=== PATIENT | male | born 1960 | race Caucasian/White ===

== ENCOUNTER 2019-01-15 08:59 | Day surgery (SDC) | payer OTHER ==
[~2019-01-15] VITALS: Ht 162.6 cm; Wt 83.1 kg
[2019-01-15 09:57] VITALS: Ht 162.6 cm; Wt 83.1 kg
[2019-01-15] MEDS ORDERED: AMLODIPINE DAILY (10:09)
[2019-01-15] MEDS ORDERED: [UNRECOGNIZED DRUG - OTHER] (10:09)
[2019-01-15] MEDS ORDERED: PEPCID DAILY (10:10)
[2019-01-15] MEDS ORDERED: OMEPRAZOLE DAILY (10:10)
[2019-01-15 10:31] VITALS: BP 128/79; PULSE 83; RESP 20
--- NOTE | 2019-01-15 11:02 | PREAC ---
Date/Time of Note Date/Time of Note DATE: 01/15/19 TIME: 11:00 Anesthesia Eval and Record Evaluation Time Pre-Procedure Interview DATE: 01/15/19 TIME: 11:00 Age 58 Sex male NPO: 8 hrs Preoperative diagnosis abd pain,constipation Planned procedure EGD,colonoscopy Past Medical History Past Medical History: Includes Cardio: HTN, Dyslipidemia GI: GERD Surgery & Anesthesia Issues No known issue Meds Anticoagulation: No Beta Ad within 24 hr: Yes Reported Medications [Pepcid Daily] No Conflict Check 01/15/19 [Omeprazole Daily] No Conflict Check 01/15/19 [Metoprolol Daily] No Conflict Check 01/15/19 [Amlodipine Daily] No Conflict Check 01/15/19 Meds reviewed: Yes Allergies Coded Allergies: No Known Drug Allergies (Verified Allergy, Unknown, 01/15/19) Allergies Reviewed: Yes Labs/Studies Labs Reviewed: Reviewed by anesthesiologist test: N/A Studies: ECG, CXR Pre-procedure Exam Last vitals Vital Signs Date Temp Pulse Resp B/P (MAP) Pulse Ox O2 O2 Flow FiO2 Time Delivery Rate 01/15/19 96.6 83 20 128/79 98 Room Air 10:31 (95) Airway: Adequate mouth opening, Adequate thyromental dist Mallampati: Mallampati III Teeth: Normal Lung: Normal Heart: Normal ASA Physical Status ASA physical status: 2 Emergency: None Planned Anesthetic General/MAC: MAC Planned Pain Management Parenteral pain med Pre-operative Attestations Prior to commencing anesthesia and surgery, the patient was re-evaluated, there was verification of: *The patient's identity *The results of appropriate recent lab work and preoperative vital signs *The above evaluation not changing prior to induction *Anesthetic plan, risk benefits, alternative and complications discussed with patient/family; questions answered; patient/family understands, accepts and wishes to proceed. OLGA CADET MD Jan 15, 2019 11:02
[2019-01-15] MEDS ORDERED: PROPOFOL 60 ML ONE (11:06)
--- NOTE | 2019-01-16 07:25 | PAC ---
Date/Time of Note Date/Time of Note DATE: 01/16/19 TIME: 07:24 Post-Anesthesia Notes Post-Anesthesia Note Last documented vital signs Vital Signs Date Temp Pulse Resp B/P (MAP) Pulse Ox O2 O2 Flow FiO2 Time Delivery Rate 01/15/19 96.6 83 20 128/79 98 Room Air 10:31 (95) Activity: WNL Respiratory function: WNL Cardiovascular function: WNL Mental status: Baseline Pain reasonably controlled: Yes Hydration appropriate: Yes Nausea/Vomiting absent: Yes OLGA CADET MD Jan 16, 2019 07:24
== END 2019-01-15 14:37 | disposition home or self-care (01) ==
LOC: GIL 08:59
PROVIDERS: ATTEND Internal Medicine Gastroenterology
DX: R19.4 Change in bowel habit (principal); D12.3 Benign neoplasm of transverse colon; K64.8 Other hemorrhoids; K57.30 Diverticulosis of large intestine without perforation or abscess without bleeding; K29.60 Other gastritis without bleeding
CPT/HCPCS: 43239; 45380; 88305; Z7610

== ENCOUNTER 2019-04-17 10:37 | Emergency (ER) | payer OTHER ==
[~2019-04-17] VITALS: Ht 157.5 cm; Wt 81.0 kg
[~2019-04-17 10:37] MED LIST: AMLODIPINE DAILY; OMEPRAZOLE DAILY; PEPCID DAILY; [UNRECOGNIZED DRUG - OTHER]
[2019-04-17 10:40] VITALS: Ht 157.5 cm; Wt 81.0 kg
[2019-04-17] MEDS ORDERED: ALBU18HF INHALATION (13:19)
[2019-04-17] MEDS ORDERED: DICY10CA40 PO (13:19)
[2019-04-17 13:28] VITALS: BP 141/87; PULSE 56; RESP 18
--- NOTE | 2019-04-17 13:29 | ERD ---
ER Documentation Chief Complaint Chief Complaint generlaized abdominal pain x 2 days HPI This is a 58-year-old gentleman who is using a deaf interpreter. He describes at least 1 month of cough that is dry nonproductive. It is mild. He denies smoking history. No pleuritic pain or chest pain. He also describes generalized diffuse and epigastric abdominal cramping. He has been told that he has gastritis and this feels similar. Patient has had work-up including endoscopy and colonoscopy. No significant acute triggers related to either of these the prompted visit. He denies fevers or chills currently. ROS All systems reviewed and are negative except as per history of present illness. Medications Home Meds Active Scripts Dicyclomine HCl (Dicyclomine HCl) 10 Mg Capsule, 10 MG PO TID PRN for ABDOMINAL CRAMPING, #20 CAP Prov:ELMER DOZIER MD 04/17/19 Albuterol Sulfate* (Ventolin HFA*) 18 Gm Hfa.aer.ad, 2 PUFF INHALATION Q4H, #1 INHALER Prov:ELMER DOZIER MD 04/17/19 Reported Medications [Pepcid Daily] No Conflict Check 01/15/19 [Omeprazole Daily] No Conflict Check 01/15/19 [Metoprolol Daily] No Conflict Check 01/15/19 [Amlodipine Daily] No Conflict Check 01/15/19 Allergies Allergies: Coded Allergies: No Known Drug Allergies (Verified Allergy, Unknown, 01/15/19) PMhx/Soc History of Surgery: Yes (INGUINAL HERNIA) Anesthesia Reaction: No Hx Neurological Disorder: No Hx Respiratory Disorders: No Hx Cardiac Disorders: No Hx Psychiatric Problems: No Hx Miscellaneous Medical Probl: Yes (HTN, FATTY LIVER) Hx Alcohol Use: Yes Hx Substance Use: No Hx Tobacco Use: Yes Smoking Status: Never smoker FmHx Family History: No diabetes Physical Exam Vitals Vital Signs Date Temp Pulse Resp B/P (MAP) Pulse Ox O2 O2 Flow FiO2 Time Delivery Rate 04/17/19 98.0 56 18 141/87 99 Room Air 13:28 (105) 04/17/19 98.8 76 19 140/78 97 10:40 (98) Physical Exam General: Well developed, well nourished, no acute distress Head: Normocephalic, atraumatic. Eyes: Pupils equally reactive, EOM intact ENT: Moist mucous membranes Neck: Supple, no lymphadenopathy Respiratory: Lungs clear bilaterally, no distress Cardiovascular: RRR, no murmurs, rubs, or gallops Abdominal: Soft, non-tender, non-distended, no peritoneal signs : Deferred MSK: No edema, no unilateral swelling, 5/5 strength Neurologic: Alert and oriented, moving all extremities, normal speech, no focal weakness, no cerebellar signs Skin: No rash Psych: Normal mood Result Diagram: 04/17/19 1217 04/17/19 1217 Results 24 hrs Laboratory Tests Test 04/17/19 12:17 White Blood Count 5.2 10^3/ul Red Blood Count 4.68 10^6/ul Hemoglobin 13.7 g/dl Hematocrit 40.3 % Mean Corpuscular Volume 86.1 fl Mean Corpuscular Hemoglobin 29.3 pg Mean Corpuscular Hemoglobin Concent 34.0 g/dl Red Cell Distribution Width 13.9 % Platelet Count 157 10^3/UL Mean Platelet Volume 11.2 fl Immature Granulocytes % 0.600 % Neutrophils % 69.6 % Lymphocytes % 15.5 % Monocytes % 8.9 % Eosinophils % 4.4 % Basophils % 1.0 % Nucleated Red Blood Cells % 0.0 /100WBC Immature Granulocytes # 0.030 10^3/ul Neutrophils # 3.6 10^3/ul Lymphocytes # 0.8 10^3/ul Monocytes # 0.5 10^3/ul Eosinophils # 0.2 10^3/ul Basophils # 0.1 10^3/ul Nucleated Red Blood Cells # 0.0 10^3/ul Sodium Level 142 mmol/L Potassium Level 3.6 mmol/L Chloride Level 107 mmol/L Carbon Dioxide Level 28 mmol/L Anion Gap 7 Blood Urea Nitrogen 13 mg/dl Creatinine 0.63 mg/dl Est Glomerular Filtrat Rate mL/min > 60 mL/min Glucose Level 111 mg/dl Calcium Level 9.4 mg/dl Total Bilirubin 0.6 mg/dl Direct Bilirubin 0.00 mg/dl Indirect Bilirubin 0.6 mg/dl Aspartate Amino Transf (AST/SGOT) 46 IU/L Alanine Aminotransferase (ALT/SGPT) 56 IU/L Alkaline Phosphatase 52 IU/L Total Protein 7.4 g/dl Albumin 4.4 g/dl Globulin 3.00 g/dl Albumin/Globulin Ratio 1.46 Lipase 107 U/L [facility] EKG, MONITORS, & DIAGNOSTIC IMAGING: Chest x-ray: I reviewed and interpreted a 1 view of the chest Mediastinum: No enlargement Cardiac silhouette: No cardiomegaly Airspace: Clear lung capps bilaterally without evidence of pneumothorax Bones: No evidence of fracture LAB INTERPRETATION: I reviewed the laboratory testing and it shows no evidence of acute process MEDICAL DECISION MAKING: Patient has very nonspecific symptoms that are subacute. His abdominal exam is benign. His lungs are clear and oxygen saturation is normal. X-ray imaging and laboratory testing will be ordered to rule out acute process. ER COURSE: * Laboratory testing and diagnostic imaging is unrevealing. Again the presentation is very subacute and the patient can be followed up with her [facility] physician. No evidence that the patient warrants inpatient hospitalization. CONSULTATION: None DISPOSITION PLAN: The patient does not have an identifiable emergent medical condition that warrants inpatient hospitalization at this time. The patient is deemed safe for discharge with outpatient follow-up. We discussed follow up with the patient's primary care doctor within 24 to 48 h ours as needed. We also discussed return to the emergency room for worsening symptoms or worsening condition. Outpatient referral: None required Discharge Medications: Bentyl, Ventolin Departure Diagnosis: Primary Impression: Cough Additional Impression: Abdominal pain Abdominal location: generalized Qualified Codes: R10.84 - Generalized abdominal pain Condition: Stable Patient Instructions: Abdominal Pain, Cough, Chronic, Uncertain Cause, (Adult) [facility]errals[facility] Usted se thurston hecho un examen mdico de control que le indica que no est en amanda condicin que requiera tratamiento urgente en el Departamento de Emergencia. Un estudio ms profundo y el tratamiento de manuel condicin pueden esperar sin ningn riesgo hasta que usted sea atendida/o en el consultorio de manuel mdico o amanda clnica. Es responsabilidad suya arreglar amanda iam para el seguimiento del christopher. MANEJO DE CONDICIONES NO URGENTES EN EL FUTURO 1) Si usted tiene un mdico de atencin primaria: Usted debera llamar a manuel mdico de atencin primaria antes de venir al departamento de emergencia. Despus de las horas de consultorio, manuel doctor o manuel asociado/a est disponible por telfono. El mdico o enfermero de marian en el servicio telefnico puede asesorarle por aram medio para atender el problema, o christopher contrario se puede programar amanda iam. 2) Si usted no tiene un mdico de atencin primaria: Llame al mdico o clnica de referencia que aparece abajo lois las horas de consultorio para hacer amanda iam para que le vean. CLINICAS: [facility] [phone] [id number] [facility] [phone] [facility] [phone] [address] [facility]. [place] [id number] [phone] [facility]. [place] [id number] [phone] [facility]. [phone] [address] [facility]. [facility] () Usted se thurston hecho un examen mdico de control que le indica que no est en amanda condicin que requiera tratamiento urgente en el Departamento de Emergencia. Un estudio ms profundo y el tratamiento de manuel condicin pueden esperar sin ningn riesgo hasta que usted sea atendida/o en el consultorio de manuel mdico o amanda clnica. Es responsabilidad suya arreglar amanda iam para el seguimiento del christopher. MANEJO DE CONDICIONES NO URGENTES EN EL FUTURO 1) Si usted tiene un mdico de atencin primaria: Usted debera llamar a manuel mdico de atencin primaria antes de venir al departamento de emergencia. Despus de las horas de consultorio, manuel doctor o manuel asociado/a est disponible por telfono. El mdico o enfermero de marian en el servicio telefnico puede asesorarle por aram medio para atender el problema, o christopher contrario se puede programar amanda iam. 2) Si usted no tiene un mdico de atencin primaria: Llame al mdico o condado institucions de referencia que aparece abajo lois las horas de consultorio para hacer amanda iam para que le vean. SI USTED NO PUEDE PAGAR PARA MONICA UN MEDICO puede ir a: [facility] [address] [place] [address] [facility] [address] [place] [address] [facility] [address] [place] [address] PARA [facility] [address] [place], [place] [id number] Additional Instructions: Llame al doctor nombrado abajo (Referral Sources) MAANA y sammi amanda IAM PARA DENTRO DE AMANDA SEMANA. Dgale a la secretaria que nosotros le instruimos hacer esta iam.Avise o llame si manuel condicin se empeora antes de la iam. ELMER DOZIER MD Apr 17, 2019 13:29
[2019-04-17] MEDS ORDERED: OMEP20CA16 PO (13:41)
[2019-04-17] MEDS ORDERED: FAMO20TA18 PO (13:41)
[2019-04-17] MEDS ORDERED: METO-335 PO (13:41)
[2019-04-17] MEDS ORDERED: AMLO-147 PO (13:41)
[2019-04-17] MEDS ORDERED: ATOR20TA38 PO (13:42)
== END 2019-04-17 13:30 | disposition home or self-care (01) ==
LOC: E/R 10:37
DX: R10.84 Generalized abdominal pain (principal); I10 Essential (primary) hypertension; R05 Cough; Z87.891 Personal history of nicotine dependence
CPT/HCPCS: 36415; 71045; 80053; 83690; 85025; Z7502

== ENCOUNTER 2019-07-08 20:13 | Emergency (ER) | payer OTHER ==
[~2019-07-08] VITALS: Ht 162.6 cm; Wt 81.4 kg
[~2019-07-08 20:13] MED LIST changes: +ALBU18HF INHALATION; +AMLO-147 PO; -AMLODIPINE DAILY; +ATOR20TA38 PO; +DICY10CA40 PO; +FAMO20TA18 PO; +METO-335 PO; +OMEP20CA16 PO; -OMEPRAZOLE DAILY; -PEPCID DAILY; -[UNRECOGNIZED DRUG - OTHER]
[2019-07-08 20:28] VITALS: Ht 162.6 cm; Wt 81.4 kg
[2019-07-08] MEDS ORDERED: morphine 4 MG/ML VIAL IV STA (23:18)
[2019-07-08] MEDS ORDERED: ONDANSETRON 4 MG INJ IV STA (23:18)
[2019-07-08] MEDS ORDERED: SOD CHLORIDE 0.9% 500 ML IV STA (23:18)
[2019-07-09 02:13] VITALS: BP 144/78; PULSE 78; RESP 16
== END 2019-07-09 02:15 | disposition home or self-care (01) ==
LOC: E/R 20:13
DX: R10.11 Right upper quadrant pain (principal); I10 Essential (primary) hypertension; R11.0 Nausea; Z87.891 Personal history of nicotine dependence
CPT/HCPCS: 36415; 74176; 80053; 81003; 83690; 85025; 96374; 96375; J2270; J2405; J7040; Z7502